=== PATIENT | male | born 1990 | race Caucasian/White ===

== ENCOUNTER 2024-10-26 15:44 | Emergency (ER) | payer BC ==
[~2024-10-26] VITALS: Ht 180.3 cm; Wt 82.1 kg
[~2024-10-26 15:44] MED LIST: ALBU.083IS IH; ALBU90OI; ALBU90OI61 INH; ANTIBIODIC; FLUSAL1005; HYDACE5 PO; MONT10T PO; MONT5TCH; PRED20 PO; Percocet 5-3251 EACH PO; RXCYCL10 PO; Valium5 MG PO
[2024-10-26 15:49] VITALS: BP 132/93
[2024-10-26 16:42] LABS: BASOPHILS ABSOLUTE AUTO 0.04 K/mm3 (0.00-0.23); BASOPHILS PERCENT AUTO 0 % (0-2); EOSINOPHILS PERCENT AUTO 4 % (0-6); Hematocrit 43.5 % (37.0-53.0); Hemoglobin 14.7 g/dL (13.5-17.5); IMMATURE GRAN ABSOLUTE AUTO 0.03 K/mm3 (0.00-0.10); IMMATURE GRAN PERCENT AUTO 0 % (0-1); LYMPHOCYTES ABSOLUTE AUTO 1.49 K/mm3 (0.84-5.20); LYMPHOCYTES PERCENT AUTO 14 % (21-46); MONOCYTES ABSOLUTE AUTO 0.76 K/mm3 (0.16-1.47); MONOCYTES PERCENT AUTO 7 % (4-13); Mean Corpuscular HGB 28.8 pg (26.0-34.0); Mean Corpuscular HGB Conc 33.8 g/dL (31.5-36.5); Mean Corpuscular Volume 85 fL (80-100); Mean Platelet Volume 9.3 fL (9.1-12.4); NEUTROPHILS ABSOLUTE AUTO 8.05 K/mm3 (1.96-9.15); NEUTROPHILS PERCENT AUTO 75 % (41-73); Platelet Count 306 K/mm3 (150-400); RDW Coefficient Variation 14.9 % (11.7-14.2); RDW Standard Deviation 46.6 fL (35.1-46.3); White Blood Cell Count 10.77 K/mm3 (4.00-11.30)
[2024-10-26 17:04] LABS: Albumin, Blood 4.2 g/dL (3.4-5.0); Albumin/Globulin Ratio 1.1 (0.8-1.8); Bilirubin, Total 0.6 mg/dL (0.1-1.0); Bun/Creatinine Ratio 12.6 (12.0-20.0); Calcium, Blood 9.5 mg/dL (8.5-10.1); Creatinine, Blood 0.88 mg/dL (0.60-1.20); Globulin, Blood 3.8 g/dL (2.2-4.0); Potassium, Blood 4.1 mmol/L (3.5-5.5)
== END 2024-10-26 20:15 | disposition home or self-care (01) ==
LOC: ER 15:44
PROVIDERS: Student in an Organized Health Care Education/Training Program
DX: R10.31 Right lower quadrant pain (principal)
CPT/HCPCS: 74177; 80053; 83690; 85025; 99284-25; Q9967

== ENCOUNTER 2025-07-05 12:43 | Day surgery (SDC) | payer OTHER ==
[~2025-07-05] VITALS: Ht 180.3 cm; Wt 83.9 kg
[2025-07-05] VITALS (12 sets, daily range): BP systolic 114–141; BP diastolic 80–106
[~2025-07-05 12:43] MED LIST changes: +ALBU2.5V5 INH; +ALBU90OI INH; +AMPDEX30CR PO; +FERSU300 PO; +PROM12.5S PR
[2025-07-05] MEDS ORDERED: ACET325 PO (13:11)
[2025-07-05] MEDS ORDERED: PANT40 PO (13:11)
--- NOTE | 2025-07-05 13:38 | NUR ---
PRE PROCEDURE NOTE PT A&OX4, PAIN LEVEL IS AT BASELINE, NO ACUTE CONCERNS. Ambulatory in Day Surgery Patient confirms NPO status and agrees with scheduled surgery. Pre-Op teaching done. Pt verbalizes understanding. Patient States Post-Procedure ride home has been arranged.
[2025-07-05] MEDS ORDERED: Midazolam HCl 1MG / ML 2ML Vial ONE (14:14)
--- NOTE | 2025-07-05 14:26 | NUR ---
07/05/25 1426 Corey Mathews CONFIRMED AND REVIEWED H&P, MEDCICATIONS, ALLERGIES, MEDICAL HISTORY, RESPIRATORY HISTORY, VITAL SIGNS, 3-LEAD EKG, CONSENTS, AND PHYSICIAN ORDERS. PATIENT CONFIRMS NPO STATUS AND AGREES WITH SCHEDULED PROCEDURE. MONITOR INTACT WITH CONTINUOUS PULSE OXIMETRY, CAPNOGRAPHY, 3-LEAD EKG, INTERMITTENT BP. SUPPLEMENTAL O2 TO BE TITRATED THROUGHOUT PROCEDURE TO MAINTAIN O2 SATURATION ABOVE 90%. PATIENT DETERMINED TO BE ASA APPROPRIATE FOR PROPOFOL SEDATION PRIOR TO START OF PROCEDURE BY DR. WILSON. Bite Block Placed.
--- NOTE | 2025-07-05 15:03 | NUR ---
Discharge instructions reviewed with patient. Patient verbalizes understanding. Copy given to patient to take home. Patient States Post-Procedure ride home has been arranged. Discharged via wheelchair to private car for ride home.
== END 2025-07-05 15:00 | disposition home or self-care (01) ==
LOC: ORSCMMR 12:43 → ORD 14:00 → ORSCMMR 15:00
PROVIDERS: Family Medicine
PROC: 0DB68ZX Excision of Stomach, Via Natural or Artificial Opening Endoscopic, Diagnostic (ICD-10-PCS; principal; 2025-07-05 14:00)
PROC: 0DB48ZX Excision of Esophagogastric Junction, Via Natural or Artificial Opening Endoscopic, Diagnostic (ICD-10-PCS; principal; 2025-07-05 14:00)
DX: K92.1 Melena (principal); K29.50 Unspecified chronic gastritis without bleeding; K29.80 Duodenitis without bleeding; K20.90 Esophagitis, unspecified without bleeding; K44.9 Diaphragmatic hernia without obstruction or gangrene; K22.2 Esophageal obstruction; Z87.11 Personal history of peptic ulcer disease; Z79.899 Other long term (current) drug therapy; F41.9 Anxiety disorder, unspecified; F90.9 Attention-deficit hyperactivity disorder, unspecified type
CPT/HCPCS: 88305; J2250; J2704; J7120